=== PATIENT | male | born 1965 | race Caucasian/White ===

== ENCOUNTER 2018-10-15 10:29 | Outpatient (CLI) | payer OTHER | END 2018-10-15 10:30 | disposition home or self-care (01) | LOC: NS 10:29 | PROVIDERS: ATTEND Physician Assistant Medical | DX: Z71.3 Dietary counseling and surveillance (principal); E10.9 Type 1 diabetes mellitus without complications; E78.2 Mixed hyperlipidemia; E66.9 Obesity, unspecified; Z68.34 Body mass index [BMI] 34.0-34.9, adult | CPT/HCPCS: 97802 ==

== ENCOUNTER 2018-10-30 10:29 | Outpatient (CLI) | payer OTHER | END 2018-10-30 10:30 | disposition home or self-care (01) | LOC: NS 10:29 | PROVIDERS: ATTEND Physician Assistant Medical | DX: Z71.3 Dietary counseling and surveillance (principal); E10.9 Type 1 diabetes mellitus without complications; E78.2 Mixed hyperlipidemia; E66.9 Obesity, unspecified; Z68.33 Body mass index [BMI] 33.0-33.9, adult | CPT/HCPCS: 97803 ==

== ENCOUNTER 2019-05-27 14:01 | Outpatient (CLI) | payer OTHER ==
[2019-05-27 15:28] VITALS: BP 133/84
--- NOTE | 2019-05-27 15:28 | SLEEP CARE CONSULTATION ---
Information from patient questionnaire entered by Yasmin Fair. I have reviewed and concur with the information entered by Yasmin Fair. This document represents the service I personally performed and the decisions made by me, Marie Saxena MD, [facility]. History of Present Illness Reason for Visit: New patient Chief Complaint: reports: Insomnia, Unrefreshed sleep, Snoring Duration of Symptoms: 5 years Usual bedtime: midnight Time it takes to fall asleep: 60 minutes Snores at night: Yes Observed to quit breathing while asleep: No Sleeps alone due to snoring: No Number of times waking at night: 1 Reasons for waking at night: reports: Gasping for air Toss, Turn, or Twitch while sleeping: Yes Recalls having dreams: Yes Usually gets out of bed at: 0900 Feels refreshed in the morning: No Morning headache: No Sleepy or fatigued during the day: Yes Ever fallen asleep while driving: No Takes day naps: Yes Dreams during day naps: No Prior sleep studies: No Additional HPI information: I had the pleasure of seeing Mr. Ramos today regarding the possibility of him having a sleep disorder. As you know, he is a 54 year old gentleman who complains of loud snore, insomnia, and unrefreshed sleep for the past 5 years. The patient tells me that he normally goes to bed around midnight, and it takes him approximately 60 minutes to fall asleep. He has been told that he snores loudly and irregularly at night. He has also been observed to stop breathing in his sleep. His can still sleep in the same bed. He can recall waking up on the average of 1 time during the night. Most of the time he wakes up because of having to use the bathroom. He has awakened occasionally because of his own snoring, choking, and having to gasp for air. There is a lot of tossing and turning in his sleep. No somniloquy (sleep talking) or somnambulism (sleep walking). Generally he can recall having dreams. In the morning he usually gets up out of the bed around 9 a.m. not feeling refreshed nor rested. He usually does not have a morning headache. During the day he complains of feeling sleepy and fatigued. His score on Novelty Sleepiness Scale is 5 out of 24. He has never fallen asleep while driving nor has had any accident due to sleepiness. He usually takes a nap during the day. Upon falling asleep during the day he denies having vivid dreams. He has never had sleep paralysis, experienced cataplexy but reports symptoms of restless leg syndrome. He denies having impaired concentration during the day. Subjective Initial [place] Sleepiness Scale score: 5 Past Medical History Past Medical History: reports: Diabetes Social History The patient's occupation is not employed. Patient is and lives in [place]. Have you smoked in the past 12 months: No Quit date: 10 years ago Alcohol use: No Caffeine use: Yes Family History Family history of sleep disordered breathing: No Allergies and Home Medications Drug allergies reviewed: Yes Home medication list reviewed: Yes Allergy and home medication list: Meds: simvastatin, Lyrica, losartan, insulin, and montelukast Allergies: NKDA Review of Systems Weight gain over past 5 years: 20 Cardiovascular: denies: high blood pressure, palpitations, chest pain, irregular heart rate or pulse, leg or foot swelling, have to sleep sitting up, other Respiratory: denies: shortness of breath, wheeze, sputum production, chronic cough, other Gastrointestinal: denies: heartburn, difficulty swallowing, nausea, vomitting, diarrhea, abdominal pain, other Urinary: denies: incontinence, frequency, urgency, impotence, other Neurological: denies: headaches, seizure, head trauma, disorientation, speech dysfunction, gait or balance problems, fainting or unconsciousness, other Psychiatric: denies: Attention Deficit Hyperactivity, anxiety, depression, mood disorder, claustrophobia, other Ear/Nose/Throat: reports: nasal congestion, sinus problems, dry mouth/throat Endocrine: denies: thyroid disease, history of goiter, sluggishness, too hot or cold, excessive thirst, increased appetite, increased urination, unexplained weakness, other Immunologic: reports: sneezing Physical Exam Vital signs obtained and entered by: Dr. Saxena Blood Pressure: 133/84 Cuff size: regular Heart Rate: 82 O2 Saturation: 96 Height: 6 ft Weight: 250 lb Body Mass Index: 33.9 BMI Classification: Obesity Class 1 Neck circumference: 17.5 Mood/affect: normal HEENT: No craniofacial malformation Nostrils: patent to airflow Turbinates: normal Septum: midline Mouth and throat: narrow oropharynx Soft palate: long Hard palate: normal Uvula: normal Uvula visualization: 25% Mallampati Class III Tongue: enlarged in size with teeth weiner on lateral edges Tonsils: small Chin and jaw: Retrognathia Neck: normal w/o lymphadenopathy or thyromegaly Heart: regular rate and rhythm Lungs: clear bilaterally Abdomen: soft, non-tender Extremities: no edema or clubbing Neurologic: intact, no focal deficits Impression and Plan IMPRESSION: 1. Obstructive Sleep Apnea-Hypopnea Syndrome, as suggested by history of loud and irregular snoring, observed cessation of breath while asleep, frequent awakenings during the night, unrefreshed sleep, and daytime hypersomnolence. Narrow oropharynx and obesity are common predisposing factors for obstructive sleep apnea-hypopnea syndrome. Pathophysiology of sleep-disordered breathing was discussed. I recommend proceeding to polysomnography to confirm the diagnosis and to assess severity. If he has significant sleep disordered breathing, a manual CPAP titration study will also be performed to find the optimal treatment pressure. I informed the patient of what the sleep studies involve and after some discussion, he agreed to proceed. 2. Insomnia, due to excessive time spent in bed of 9 hours a night. Because he wakes up regularly at 9 am, he should not attempt to go to bed before 1 am, assuming the normal sleep requirement of 8 hours a night. His physiologic bedtime might even be later because he also naps during the day. Plan: 1. Schedule polysomnography + manual CPAP titration study and return in 1 to 2 weeks after the study to discuss result and initiate therapy. 2. Avoid long distance driving or when feeling sleepy. 3. Avoid alcohol, sedative and muscle relaxant around bedtime. 4. Attempt to lose weight. 5. Maintain a regular wake up time and spend no more than 8 hours in bed at night. Avoid naps. 6. Prescription made for one tablet of zolpidem 5 mg to taken the night of the sleep study on as needed basis. I spent 100% of this 2030 minute visit face to face with the patient with greater than 50% of this was spent time counseling the patient and coordination of care.
== END 2019-05-27 14:02 | disposition home or self-care (01) ==
LOC: SC 14:01
PROVIDERS: ATTEND Internal Medicine Pulmonary Disease
DX: G47.10 Hypersomnia, unspecified (principal); R06.81 Apnea, not elsewhere classified; R06.83 Snoring; G47.8 Other sleep disorders; G47.00 Insomnia, unspecified; E66.9 Obesity, unspecified; Z68.33 Body mass index [BMI] 33.0-33.9, adult
CPT/HCPCS: 99203; 99212

== ENCOUNTER 2019-07-03 19:30 | Outpatient (CLI) | payer OTHER | END 2019-07-03 23:59 | disposition home or self-care (01) | LOC: SC 19:30 | PROVIDERS: ATTEND Internal Medicine Pulmonary Disease | DX: G47.33 Obstructive sleep apnea (adult) (pediatric) (principal) | CPT/HCPCS: 95806 ==

== ENCOUNTER 2019-07-17 11:14 | Outpatient (CLI) | payer OTHER ==
[2019-07-17 12:14] VITALS: BP 110/70
--- NOTE | 2019-07-17 12:14 | SLEEP CARE CONSULTATION ---
Information from patient questionnaire entered by Melida Vera. I have reviewed and concur with the information entered by Melida Vera. This document represents the service I personally performed and the decisions made by me, Claudia Gaffney RN, MSN, [employer]. History of Present Illness Accompanied by: Spouse Initial [place] Sleepiness Scale score: 5 Current [place] Sleepiness Scale score: 5 Additional HPI information: ANISHA RAMOS returns with spouse for follow up and results of the recently performed home sleep study. I explained the pathophysiology behind obstructive sleep apnea. We then spent quite a bit of time discussing different treatment options. For mild obstructive sleep apnea, surgery and oral appliance are alternatives to nasal CPAP therapy but in moderate or severe cases, nasal CPAP is the most effective and reliable treatment. Because apnea is primarily in supine position, then positional management therapy could be effective. Methods discussed such as positioning with pillows, using a T-shirt with tennis balls in the back, and shown commercial products that have a pillow format on back to prevent supine sleep. I reviewed the impact of weight changes on sleep apnea and strongly recommended losing weight. After some discussion, the patient opted to go with positional therapy. Non Pap treatment pamphlets reviewed and given to patient. Patient counseled not drink alcohol less than 4 hours before bedtime as it can increase snoring and apnea. Patient does not drink alcohol. Patient was cautioned about risks of drowsy driving until sleepiness symptoms resolve. Patient denies drowsy driving. AASM patient education on snoring and sleep apnea given and reviewed but declined . Sleep Study - Results Polysomnography/Home Sleep Study results: SLEEP TIME AND EFFICIENCY: The sleep study recording began at 01:42:46 AM and ended at 09:03:30 AM. Total recording time was 440.7 minutes. The total sleep time was 419.5 minutes. The sleep efficiency was 95.2 percent. The patient spent 220.8 minutes supine, and spent 198.8 minutes non-supine. The patients own estimate of sleep time was 7.00 hours. RESPIRATORY DATA: The AHI in this report is indexed to sleep time based on actigraphy. The AASM defines this as MANOHAR. The AHI on this type 3 Home Sleep Study may understate the AHI determined on a type 1 or 2 study, since EEG is not monitored resulting in the inability to score non-desaturating hypopneas. Based on 4% Calculation: The AHI4% calculation of 5.1 per hour of recording time was based on a total of 22 scored apneas and 14 scored hypopneas with 4% desaturations. Supine AHI4%: 8.7 per hour. Non-supine AHI4%: 0.9 per hour. Oxygen Summary: Patient's baseline O2 saturation was 94.9 %. The patient spent 3.0 minutes at an oxygen saturation less than 90%, and 0.0 minutes less than 85%. The desaturation index was 3.0 events per hour sleep time. The lowest saturation was 85.0%. SNORING: The percent of the study time spent snoring was 4.1 %. The Snoring Count was 530 . The Snoring Index was 75.8 . Patient Name: Anisha Ramos Study Date: 07/03/2019 : 1965 Page 2 of 6 PULSE RATE REVIEW: The mean heart rate was 68 beats per minute. The rate ranged from a low of 57 to a high of 91 beats per minute. DIAGNOSIS CODE: Obstructive Sleep Apnea G47.33 This patient has mild obstructive sleep apnea occurring almost exclusively during supine sleep Allergies and Home Medications Known drug allergies: No Home medication list reviewed: Yes (no changes ) Review of Systems Review of systems same as previous: Yes Physical Exam Blood Pressure: 110/70 Cuff size: long Heart Rate: 90 O2 Saturation: 96 Height: 6 ft Weight: 261 lb Body Mass Index: 35.4 BMI Classification: Obesity Class 2 Impression and Plan 1. Obstructive Sleep Apnea-Hypopnea Syndrome, mild, with lowest oxygen saturation of 85%. Possibly this is the cause of the patients symptoms of unrefreshed sleep, and fatigue and excessive daytime sleepiness requiring a nap. As mentioned above, the patient will use positional therapy. He was also advised to lose weight to reduce apnea risk and will also benefit his diabetes. * positional therapy * Attempt to lose weight. * Avoid alcohol consumption near bedtime. * The patient is again cautioned about driving until sleepiness completely resolves. * Return in 2 months. Time Spent with Patient (minutes): 25 I spent 100% of this visit face to face with the patient with greater than 50% of this was spent time counseling the patient and coordination of care.
== END 2019-07-17 11:15 | disposition home or self-care (01) ==
LOC: SC 11:14
PROVIDERS: ATTEND Nurse Practitioner Family
DX: G47.33 Obstructive sleep apnea (adult) (pediatric) (principal); E66.9 Obesity, unspecified; Z68.35 Body mass index [BMI] 35.0-35.9, adult
CPT/HCPCS: 99212; 99214